=== PATIENT | female | born 1960 | race Caucasian/White ===

== ENCOUNTER 2017-05-26 03:45 | Emergency (ER) | payer BC ==
[~2017-05-26] VITALS: Ht 167.6 cm; Wt 54.4 kg
[2017-05-26 03:47] VITALS: BP 105/62
== END 2017-05-26 04:58 | disposition home or self-care (01) ==
LOC: ER 03:45
DX: S01.01XA Laceration without foreign body of scalp, initial encounter (principal); F10.120 Alcohol abuse with intoxication, uncomplicated; F17.210 Nicotine dependence, cigarettes, uncomplicated; W18.09XA Striking against other object with subsequent fall, initial encounter; Y93.89 Activity, other specified; Y92.89 Other specified places as the place of occurrence of the external cause; Y99.8 Other external cause status

== ENCOUNTER 2017-10-15 19:26 | Inpatient (IN) | payer OTHER ==
[~2017-10-15] VITALS: Ht 167.6 cm; Wt 68.0 kg
--- NOTE | ~2017-10-15 | HC ---
[facility] [place] [address] CONSULTATION Name: JOSHUA SO Room #: 364-P [facility] IN M.R.#: [id number] Admission: 10/16/17 Attend Phys: Nas Ugarte MD Discharge: 10/19/17 Date of : 64 Report #: [id number] THIS REPORT FOR: //name// CC: Nas Ugarte [facility] physician/PCP DATE OF SERVICE: 10/16/2017 PSYCHIATRIC CONSULTATION HISTORY OF PRESENT ILLNESS: This lady was admitted after a possible overdose. She endorses that "I just got really pissed off." She endorses that she was going through some detox, but is vague about the length of time she had been sober or when the relapse occurred. She does finally tell me she had been sober "about 23 hours." She notes her boyfriend was trying to help her with the detoxification and she had warned them that was not going to be easy. At some point during the detox, appears there is a polysubstance overdose. The patient is somewhat confused and coherent. She believes that she is and although only being a few days "it is a girl." She has trouble organizing her thoughts and mixes up recent and remote past. She has essentially endorsed that the overdose occurred with self-harm as and attention. PAST PSYCHIATRIC HISTORY: Appears there is a history of substance use disorder. PAST MEDICAL HISTORY: She states that she sees Dr. Delgado with respect to seizure disorder, but she does not know the medication that she takes. "He wants me to take 2 a day, but I only took 1." SOCIAL HISTORY: She works at [employer]. 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 CURRENT MEDICATIONS: Include vitamin daily, thiamine 100 daily, Ativan p.r.n. MENTAL STATUS EXAMINATION: female, ectomorphic build, confused, stimulus-bound, slightly irritable, recent suicidal ideation and behavior. Insight and judgment impaired. DIAGNOSES: Delirium/encephalopathy, alcohol use disorder, mood disorder, not otherwise specified. RECOMMENDATIONS: She will need an alcohol detox, already seen affidavit on the chart and she will need transfer to inpatient psychiatry on the basis of self-injurious behavior and also intent and plan to harm herself. [address] [address] CONSULTATION Name: JOSHUA SO Room #: 364-P [facility] IN M.R.#: [id number] Admission: 10/16/17 Attend Phys: Nas Ugarte MD Discharge: 10/19/17 Date of : 64 Report #: [id number] As far as detox, she will require Ativan and if there are consecutive she was greater than or equal to 15 will need to check with the physician or psychiatrist for an increasing dose of lorazepam. Not completely clear to me if there is an underlying seizure disorder too or not. <ELECTRONICALLY SIGNED> By: Mario Jackson MD 12/01/17 08 1515 0303 Mario Jackson MD /clarence
--- NOTE | ~2017-10-15 | EKG ---
[place] [address] [facility] [place] [address] ELECTROCARDIOGRAM REPORT Name: ANI SOLY Room #: 170-5 ADM IN M.R.#: [id number] Admission: 10/16/17 Attend Phys: Nas Ugarte MD Discharge: Date of : 64 Report #: [id number] THIS REPORT FOR: //name// [facility] ED Test Date: 2017-10-15 Test Time: 19:43:34 Pat Name: JOSHUA SO Department: Room: 170 Gender: F Filling Winder: MARGO : 1960 Requested By: Jeromy Conner Order Number: [id number] MD: Florencio Jhaveri Measurements Intervals [place] Rate: 87 P: 55 [place]: 160 QRS: 7 QRSD: 80 T: 34 QT: 375 QTc: 451 Interpretive Statements Sinus rhythm No significant abnormality No previous ECG available for comparison Electronically Signed On 10-16-2017 9:03:36 SITE DIRECTOR by Florencio Jhaveri [email or web address] <ELECTRONICALLY SIGNED> By: Florencio Jhaveri MD, [facility] 10/16/17 0903 [id number] Florencio Jhaveri MD, FACC /EPI
[2017-10-15 19:27] VITALS: BP 132/86
[2017-10-15 20:16] LABS: ABSOLUTE NEUTROPHILS 13.1 thou/uL (1.4-8.2); BASOPHILS 0.4 % (0.0-2.0); HEMATOCRIT 35.5 % (37.0-47.0); HEMOGLOBIN 12.2 gm/dL (12.0-15.0); MCH 30.6 pg (26.0-34.0); MCHC 34.4 g/dL (28.0-37.0); MCV 88.9 fL (80.0-100.0); MONOCYTES 5.2 % (1.0-8.0); PLATELET COUNT 331 thou/uL (150-400); POLYS 86.4 % (36.0-66.0); RBC 3.99 mil/uL (4.20-5.00); RDW 14.5 % (10.5-14.5); WBC 15.1 thou/uL (4.0-11.0)
[2017-10-15 20:24] LABS: ANION GAP 9 mmol/L (7-16); BUN 9 mg/dL (7-18); CALCIUM 9.3 mg/dL (8.5-10.1); CHLORIDE 100 mmol/L (98-107); CO2 28 mmol/L (21-32); CREATININE 0.7 mg/dL (0.6-1.0); GLUCOSE 108 mg/dL (74-106); POTASSIUM 4.1 mmol/L (3.5-5.1); SODIUM 137 mmol/L (136-145)
[2017-10-15 20:31] LABS: URINE BILIRUBIN NEGATIVE (Negative); URINE BLOOD NEGATIVE (Negative); URINE CLARITY CLEAR; URINE COLOR YELLOW; URINE GLUCOSE-RANDOM* NEGATIVE (Negative); URINE KETONES NEGATIVE (Negative); URINE LEUKOCYTES NEGATIVE (Negative); URINE NITRITE NEGATIVE (Negative); URINE PROTEIN (DIPSTICK) NEGATIVE (Negative); URINE SPECIFIC GRAVITY <= 1.005 (1.005-1.035); URINE UROBILINOGEN 0.2 E.U./dl (0.2-1.0)
[2017-10-15 20:32] LABS: SGOT 32 U/L (15-37); SGPT 42 U/L (30-65); TOTAL BILIRUBIN 0.1 mg/dL (<0.1-1.0); TOTAL PROTEIN 6.7 g/dL (6.4-8.2); TROPONIN-I < 0.04 ng/mL (<0.06)
[2017-10-15 20:39] LABS: AMP/METHAMP Negative (Negative); BARBITURATES Negative (Negative); BENZODIAZEPINES Negative (Negative); COCAINE Negative (Negative); METHADONE Negative (Negative); OPIATES Negative (Negative); PCP Negative (Negative)
[2017-10-15 21:28] LABS: BE(vivo) -1.2 mmol/L (-2 to +3); HCO3 23.1 mmol/L (22.0-26.0); PCO2 37.1 mmHg (35.0-45.0); PO2 68.9 mmHg (80.0-100.0); pH 7.412 (7.360-7.450); sO2 94.1 % (92.0-98.0)
[2017-10-15 23:43] LABS: SALICYLATE 5.1 mg/dL (2.8-20.0)
[2017-10-16 01:43] LABS: SALICYLATE 4.4 mg/dL (2.8-20.0)
[2017-10-16 10:56] VITALS: BP 106/74
[2017-10-16 12:15] VITALS: BP 154/103
[2017-10-16 19:10] VITALS: BP 119/84
[2017-10-17 00:08] VITALS: BP 111/71
[2017-10-17 04:00] VITALS: BP 110/68
[2017-10-17 08:32] VITALS: BP 138/93
[2017-10-17 11:16] VITALS: BP 126/88
[2017-10-17 15:57] VITALS: BP 127/90
[2017-10-17 20:26] VITALS: BP 112/73
[2017-10-18 04:45] VITALS: BP 124/62
[2017-10-18 05:17] LABS: CALCIUM 8.7 mg/dL (8.5-10.1); CREATININE 0.6 mg/dL (0.6-1.0); POTASSIUM 4.4 mmol/L (3.5-5.1)
[2017-10-18 08:20] VITALS: BP 133/94
[2017-10-18 15:27] VITALS: BP 120/70
[2017-10-18 20:19] VITALS: BP 140/97
[2017-10-19 08:57] VITALS: BP 131/95
[2017-10-19 11:01] LABS: HEMATOCRIT 35.7 % (37.0-47.0); HEMOGLOBIN 12.1 gm/dL (12.0-15.0); MCH 30.5 pg (26.0-34.0); MCHC 33.9 g/dL (28.0-37.0); MCV 90.1 fL (80.0-100.0); RBC 3.97 mil/uL (4.20-5.00); RDW 15.3 % (10.5-14.5); WBC 7.1 thou/uL (4.0-11.0)
[2017-10-19 12:50] VITALS: BP 132/87
[2017-10-19] MEDS ORDERED: NEURONTIN 300300 M1 PO (16:58)
[2017-10-19 17:09] VITALS: BP 132/87
[2017-10-19 17:23] VITALS: BP 132/87
== END 2017-10-19 18:15 | DRG 917 ==
LOC: ER 19:26 → 3W 10-16 06:51 → EROBS 10-16 06:51 → 3W 10-16 11:26 → ENTRNSPT 10-19 17:50 → CMPTRNSPT 10-19 17:54 → 3W 10-19 18:15
PROVIDERS: Hospitalist; Physician Assistant
DX: T43.212A Poisoning by selective serotonin and norepinephrine reuptake inhibitors, intentional self-harm, initial encounter (principal); G93.40 Encephalopathy, unspecified; F23 Brief psychotic disorder; S09.90XA Unspecified injury of head, initial encounter; T42.4X2A Poisoning by benzodiazepines, intentional self-harm, initial encounter; F41.9 Anxiety disorder, unspecified; F10.20 Alcohol dependence, uncomplicated; R09.02 Hypoxemia; D72.829 Elevated white blood cell count, unspecified; E07.81 Sick-euthyroid syndrome; T42.6X2A Poisoning by other antiepileptic and sedative-hypnotic drugs, intentional self-harm, initial encounter; S16.1XXA Strain of muscle, fascia and tendon at neck level, initial encounter; X58.XXXA Exposure to other specified factors, initial encounter; F17.210 Nicotine dependence, cigarettes, uncomplicated; Y93.89 Activity, other specified; Y92.89 Other specified places as the place of occurrence of the external cause; Y99.8 Other external cause status
CPT/HCPCS: 10080

== ENCOUNTER 2017-10-20 20:45 | Emergency (ER) | payer OTHER ==
[~2017-10-20] VITALS: Ht 167.6 cm; Wt 54.4 kg
[~2017-10-20 20:45] MED LIST: NEURONTIN 300300 M1 PO
[2017-10-20 21:37] LABS: HEMATOCRIT 37.7 % (37.0-47.0); HEMOGLOBIN 12.8 gm/dL (12.0-15.0); MCH 30.6 pg (26.0-34.0); MCHC 34.1 g/dL (28.0-37.0); MCV 89.7 fL (80.0-100.0); RBC 4.2 mil/uL (4.20-5.00); RDW 14.9 % (10.5-14.5); WBC 8.1 thou/uL (4.0-11.0)
[2017-10-20 21:49] LABS: CALCIUM 9.5 mg/dL (8.5-10.1); CREATININE 0.9 mg/dL (0.6-1.0); POTASSIUM 4.4 mmol/L (3.5-5.1)
[2017-10-20 22:22] VITALS: BP 113/73
== END 2017-10-20 22:23 | disposition home or self-care (01) ==
LOC: ER 20:45
PROVIDERS: Emergency Medicine
DX: F41.9 Anxiety disorder, unspecified (principal); F17.210 Nicotine dependence, cigarettes, uncomplicated; Z90.49 Acquired absence of other specified parts of digestive tract

== ENCOUNTER 2017-11-01 00:24 | Emergency (ER) | payer OTHER ==
[~2017-11-01] VITALS: Ht 167.6 cm; Wt 49.9 kg
[2017-11-01 00:25] VITALS: BP 132/87
[2017-11-01] MEDS ORDERED: BUTALB-APAP-CA1 EACH PO (01:01)
== END 2017-11-01 02:10 | disposition home or self-care (01) ==
LOC: ER 00:24
DX: G43.909 Migraine, unspecified, not intractable, without status migrainosus (principal); F31.9 Bipolar disorder, unspecified; F17.210 Nicotine dependence, cigarettes, uncomplicated; Z90.49 Acquired absence of other specified parts of digestive tract